=== PATIENT | female | born 1995 | race Caucasian/White ===

== ENCOUNTER 2017-08-24 09:12 | Outpatient (CLI) | payer OTHER ==
--- NOTE | 2017-08-24 10:13 | ULT ---
ABDOMINAL ULTRASOUND: Date: 08/24/17 COMPARISON: None. HISTORY: Abdominal pain. TECHNIQUE: Multiplanar Pichardo scale sonographic imaging of the abdomen obtained. FINDINGS: The imaged pancreas is unremarkable. The imaged IVC and aorta appear within normal limits. There is no focal liver lesion or intrahepatic biliary dilatation noted. The common bile duct measures 2.0 mm, within normal limits. The sonographic Graham's sign is negative . The pancreas is not well assessed secondary to overlying bowel gas. There is no gallbladder wall thickening or pericholecystic fluid. No gallstones are seen. Right kidney measures 11.2 cm in craniocaudal dimension and left kidney measures 10.1 cm in craniocau sagrario dimension. There is no renal mass, hydronephrosis, or renal stone seen. Spleen is normal in size, measuring up to 9.4 cm. IMPRESSION: No acute findings. POS: [facility]
== END 2017-08-24 09:13 | disposition home or self-care (01) ==
LOC: SCSULT 09:12
PROVIDERS: ATTEND Internal Medicine Gastroenterology
DX: K58.0 Irritable bowel syndrome with diarrhea (principal); R10.84 Generalized abdominal pain
CPT/HCPCS: 76700